=== PATIENT | female | born 1945 | race African-American/Black ===

== ENCOUNTER 2016-11-18 14:29 | Outpatient (CLI) | payer MEDICARE, OTHER ==
--- NOTE | 2016-11-18 19:21 | RAD ---
THREE VIEWS OF THE LUMBAR SPINE 11/18/16 INDICATION: Low back pain. COMPARISON: Prior exam dated 07/17/12. FINDINGS: There are five lumbar type vertebral bodies. There is diffuse osteopenia. There is multilevel degene rative disease and facet osteoarthritic change most pronounced at L5-S1. This appears similar to the comparison dated 07/17/12. There is mild degenerative change of the SI joints. There is prominent ca lcification of the abdominopelvic vasculature. IMPRESSION: 1. No acute fracture or subluxation is evident. 2. Mild to moderate spondylosis of the lumbar spine. POS: [facility]
== END 2016-11-18 14:30 | disposition home or self-care (01) ==
LOC: NAV RAD 14:29
PROVIDERS: ATTEND Specialist
DX: S39.012A Strain of muscle, fascia and tendon of lower back, initial encounter (principal); M47.816 Spondylosis without myelopathy or radiculopathy, lumbar region
CPT/HCPCS: 72100

== ENCOUNTER 2022-05-16 03:40 | Emergency (ER) | payer MEDICARE, OTHER ==
[2022-05-16] MEDS ORDERED: Aspirin Chewable 81 MG TAB ONE ×2 (04:25)
[2022-05-16] MEDS ORDERED: Ventolin HFA Inhaler 60 PUFF INHALER ONE (04:27)
[2022-05-16] MEDS ORDERED: Aspirin Chewable 81 MG TAB PO SCH (04:30)
[2022-05-16 04:40] LABS: Hemoglobin 10.8 g/dL (12.0-16.0); Mean Corpuscular HGB CONC 28.9 g/dL (32.0-36.0); Mean Corpuscular Hemoglobin 30.4 pg (27.0-31.0); Mean Platelet Volume 6.6 fL (7.4-10.4); Platelet Count 215 thou/uL (130-400); RBC Distribution Width 18.9 % (11.5-14.5); Red Blood Cell (RBC) Count 3.54 mill/uL (4.20-5.40); White Blood Cell (WBC) Count 3.3 thou/uL (4.8-10.8)
[2022-05-16 04:43] LABS: ALT (SGPT) 10 U/L (8-55); AST (SGOT) 18 U/L (5-34); Albumin 3.3 g/dL (3.4-4.8); Alkaline Phosphatase 41 U/L (40-110); Anion Gap 17 mmol/L (10-20); BUN (Urea Nitrogen) 19 mg/dL (9.8-20.1); Bilirubin, Total 0.3 mg/dL (0.2-1.2); Calc. Creatinine Clearance 0 mL/min (70-130); Calcium 8.9 mg/dL (7.8-10.44); Carbon Dioxide 32 mmol/L (23-31); Chloride 98 mmol/L (98-107); Estimated GFR 92; Globulin 3.9 g/dL (2.4-3.5); Glucose 88 mg/dL (83-110); Lipase 28 U/L (8-78); Potassium 4.1 mmol/L (3.5-5.1); Protein, Total 7.2 g/dL (5.8-8.1); Sodium 143 mmol/L (136-145)
[2022-05-16] MEDS ORDERED: Famotidine/PF 20 mg/2ml Vial ONE (04:47)
[2022-05-16 08:06] LABS: Troponin I 0.019 ng/mL (< 0.028)
== END 2022-05-16 09:45 ==
LOC: NAV ERS 03:40
DX: U07.1 COVID-19 (principal); R07.9 Chest pain, unspecified; I10 Essential (primary) hypertension; J44.9 Chronic obstructive pulmonary disease, unspecified; E78.5 Hyperlipidemia, unspecified; K21.9 Gastro-esophageal reflux disease without esophagitis; Z79.899 Other long term (current) drug therapy
CPT/HCPCS: 71045; 80053; 83690; 83880; 84484; 85025; 93005; 96374; S0028